=== PATIENT | female | born 1930 | race Two or more races ===

== ENCOUNTER 2019-04-01 11:47 | Emergency (ER) | payer MEDICARE, OTHER ==
[~2019-04-01] VITALS: Ht 147.3 cm; Wt 64.4 kg
[2019-04-01 12:25] LABS: BASOPHILS % (AUTO) 0.5 % (0-1); EOSINOPHILS % (AUTO) 0.7 % (0-6); HEMATOCRIT 39.1 % (35.0-45.0); HEMOGLOBIN 12.8 g/dl (12.0-16.0); LYMPHOCYTES # (AUTO) 1.7 X10'3 (1.1-4.8); LYMPHOCYTES % (AUTO) 27.9 % (21-51); MEAN CORPUSCULAR HEMOGLOBIN 29.5 PG (27.0-31.0); MEAN CORPUSCULAR HGB CONC 32.8 g/dL (33.0-36.5); MEAN CORPUSCULAR VOLUME 89.9 FL (78-98); MEAN PLATELET VOLUME 7.8 FL (7.4-10.4); MONOCYTES # (AUTO) 0.3 X10'3 (0-0.9); MONOCYTES % (AUTO) 5.6 % (2-12); NEUTROPHILS # (AUTO) 4.1 X10'3 (1.8-7.7); NEUTROPHILS % (AUTO) 65.3 % (42-75); PLATELET COUNT 214 X10'3 (140-440); RED BLOOD COUNT 4.34 X10'6 (4.20-5.60); RED CELL DISTRIBUTION WIDTH 15.8 % (11.5-14.5); WHITE BLOOD COUNT 6.2 X10'3 (4.5-11.0)
--- NOTE | 2019-04-01 12:35 | NUR ---
ASSUMED CARE OF PT FROM [facility], FIRST CONTACT WITH PT, FAMILY IS AT BEDSIDE AND SAID PT IS AT HER BASELINE, H/O DEMENTIA AND CVA, FAMILY SAID SHE HAS "GOOD DAYS AND BAD DAYS...SOMETIMES SHE KNOWS US AND SOMETIMES SHE DOESN'T", PT HAS EYES OPEN, CONFUSED, FOLLOW SIMPLE COMMANDS AT TIMES, RESP EVEN AND UNLABORED, SKIN P/W/D,
[2019-04-01 12:37] LABS: ANION GAP 12 (8-16); BILIRUBIN,TOTAL 0.6 MG/DL (0.1-1.0); BLOOD UREA NITROGEN 31 MG/DL (7-18); CALCIUM 9.2 MG/DL (8.5-10.1); CHLORIDE 110 MMOL/L (99-107); CREATININE 1.07 MG/DL (0.40-0.90); GLUCOSE 85 MG/DL (70-104); POTASSIUM 3.9 MMOL/L (3.5-5.1); SODIUM 145 MMOL/L (135-145); TOTAL PROTEIN 7.3 G/DL (6.4-8.2); eGFR 48 ML/MIN
[2019-04-01 12:38] LABS: ALANINE AMINOTRANSFERASE 19 U/L (12-78); ALBUMIN 3.5 G/DL (3.4-5.0); ALBUMIN/GLOBULIN RATIO 0.9 (1.1-1.5); ALKALINE PHOSPHATASE 77 IU/L (46-116); ASPARTATE AMINO TRANSFERASE 17 U/L (10-37)
--- NOTE | 2019-04-01 12:40 | NUR ---
IN AND OUT CATH DONE WITH STERILE TECHNIQUE, 20ML OF DARK YELLOW, CLOUDY URINE OUT, NO COMPLICATIONS, PT VENKAT WELL
[2019-04-01 12:58] LABS: CLARITY,URINE TURBID (Clear); COLOR,URINE YELLOW (Yellow); GLUCOSE, URINE NEGATIVE (Neg); KETONES,URINE 15 mg/dl (Neg); LEUKOCYTE ESTERASE ,URINE LARGE (Neg); NITRITES, URINE POSITIVE (Neg); OCCULT BLOOD,URINE TRACE-INTACT (Neg); PH,URINE 7.5 (4.8-8.0); PROTEIN,URINE 30 mg/dl (Neg); UROBILINOGEN,URINE 0.2 E.U/dL (0.2-1.0)
[2019-04-01 13:00] LABS: UA COLLECTION TYPE STRAIGHT CATH
[2019-04-01 13:04] LABS: MUCUS STRANDS NONE SEEN /LPF (Neg); SQUAMOUS EPITHELIAL CELL,UR FEW /LPF (FEW); TRANSITIONAL EPI CELLS,URINE MODERATE /HPF
[2019-04-01 13:05] LABS: BACTERIA,URINE 4+ /HPF (Neg); RBC,URINE 0-2 /HPF (0-2); WBC,URINE TNTC /HPF (0-4)
[2019-04-01] MEDS ORDERED: CefTRIAXone 2gm/D5W 50ml 50 ML IV ONE (13:30)
[2019-04-01] MEDS ORDERED: normal saline 1000ML IV soln IVB ONE (13:30)
--- NOTE | 2019-04-01 13:44 | NUR ---
FAMILY AWARE OF PLAN TO DC ASSISTED HOME VIA [facility], DX WITH UTI, RECEIVING ANTIBIOTIC AND 1 LITER NS IV BEFORE TRANSPORT, PT IS RESTING QUIETLY ON GURNEY, GCS 14 (BASELINE PER FAMILY), RESP EVEN AND UNLABORED, IV TO LEFT AC IS PATENT AND CLEAR
[2019-04-01] MEDS ORDERED: CEPH500C5 PO (13:47)
--- NOTE | 2019-04-01 13:51 | NUR ---
REPORT GIVEN TO ALMA ROSA WEISS, AT [facility], WE ARE ARRANGING FOR TRANSPORTATION BACK TO FACILITY
[2019-04-01 14:16] VITALS: BP 130/50
== END 2019-04-01 14:18 | disposition home or self-care (01) ==
LOC: ER 11:49
DX: F03.90 Unspecified dementia, unspecified severity, without behavioral disturbance, psychotic disturbance, mood disturbance, and anxiety (principal); N39.0 Urinary tract infection, site not specified; R79.1 Abnormal coagulation profile; Z88.6 Allergy status to analgesic agent
CPT/HCPCS: 36415; 80053; 81001; 85025; 85610; 87077; 87088; 87186; 93005; 96365; 99284; J0696; J7030; P9612

== ENCOUNTER 2019-05-02 12:50 | Emergency (ER) | payer MEDICARE, OTHER ==
[~2019-05-02] VITALS: Ht 152.4 cm; Wt 59.1 kg
[~2019-05-02 12:50] MED LIST: CEPH500C5 PO
[2019-05-02 12:52] VITALS: BP 98/53
== END 2019-05-02 14:47 | disposition home or self-care (01) ==
LOC: ER 12:51
DX: S00.03XA Contusion of scalp, initial encounter (principal); F03.90 Unspecified dementia, unspecified severity, without behavioral disturbance, psychotic disturbance, mood disturbance, and anxiety; R22.42 Localized swelling, mass and lump, left lower limb; M54.2 Cervicalgia; Z88.6 Allergy status to analgesic agent; Z88.5 Allergy status to narcotic agent; W18.30XA Fall on same level, unspecified, initial encounter; Y93.89 Activity, other specified; Y92.89 Other specified places as the place of occurrence of the external cause; Y99.9 Unspecified external cause status
CPT/HCPCS: 70450; 72125; 93005; 99284

== ENCOUNTER 2019-08-06 10:29 | Emergency (ER) | payer MEDICARE, OTHER ==
[~2019-08-06] VITALS: Ht 154.9 cm; Wt 54.5 kg
[2019-08-06] MEDS ORDERED: normal saline 1000ML IV soln IVB ONE (11:05)
--- NOTE | 2019-08-06 11:27 | NUR ---
Allergy info per EMS
[2019-08-06 11:28] LABS: CLARITY,URINE SLIGHTLY CLOUDY (Clear); COLOR,URINE YELLOW (Yellow); GLUCOSE, URINE NEGATIVE (Neg); KETONES,URINE NEGATIVE (Neg); LEUKOCYTE ESTERASE ,URINE SMALL (Neg); NITRITES, URINE POSITIVE (Neg); OCCULT BLOOD,URINE NEGATIVE (Neg); PH,URINE 5.5 (4.8-8.0); PROTEIN,URINE NEGATIVE (Neg); UROBILINOGEN,URINE 0.2 E.U/dL (0.2-1.0)
[2019-08-06 11:32] LABS: BASOPHILS % (AUTO) 0.4 % (0-1); EOSINOPHILS # (AUTO) 0.1 X10'3 (0-0.9); EOSINOPHILS % (AUTO) 1.2 % (0-6); HEMOGLOBIN 12.7 g/dl (12.0-16.0); LYMPHOCYTES # (AUTO) 1.2 X10'3 (1.1-4.8); LYMPHOCYTES % (AUTO) 15.1 % (21-51); MEAN CORPUSCULAR HEMOGLOBIN 31.4 PG (27.0-31.0); MEAN CORPUSCULAR HGB CONC 33.5 g/dL (33.0-36.5); MEAN CORPUSCULAR VOLUME 93.6 FL (78-98); MONOCYTES # (AUTO) 0.5 X10'3 (0-0.9); MONOCYTES % (AUTO) 5.8 % (2-12); NEUTROPHILS # (AUTO) 6.2 X10'3 (1.8-7.7); NEUTROPHILS % (AUTO) 77.5 % (42-75); PLATELET COUNT 201 X10'3 (140-440); RED BLOOD COUNT 4.06 X10'6 (4.20-5.60); RED CELL DISTRIBUTION WIDTH 14.6 % (11.5-14.5)
[2019-08-06 11:44] LABS: UA COLLECTION TYPE STRAIGHT CATH
[2019-08-06 11:50] LABS: ALANINE AMINOTRANSFERASE 20 U/L (12-78); ALBUMIN 3.3 G/DL (3.4-5.0); ALBUMIN/GLOBULIN RATIO 0.9 (1.1-1.5); ALKALINE PHOSPHATASE 78 IU/L (46-116); ANION GAP 10 (8-16); ASPARTATE AMINO TRANSFERASE 26 U/L (10-37); BILIRUBIN,TOTAL 0.5 MG/DL (0.1-1.0); BLOOD UREA NITROGEN 24 MG/DL (7-18); BUN/CREATININE RATIO 22.4 (6.6-38.0); CALCIUM 8.9 MG/DL (8.5-10.1); CHLORIDE 106 MMOL/L (99-107); CREATININE 1.07 MG/DL (0.40-0.90); GLUCOSE 123 MG/DL (70-104); POTASSIUM 4.4 MMOL/L (3.5-5.1); SODIUM 142 MMOL/L (135-145); TOTAL CARBON DIOXIDE 26.1 MMOL/L (24-32); TOTAL PROTEIN 6.9 G/DL (6.4-8.2); eGFR 48 ML/MIN
[2019-08-06 11:51] LABS: TROPONIN I < 0.04 NG/ML (0.0-0.05)
[2019-08-06 11:57] LABS: SQUAMOUS EPITHELIAL CELL,UR FEW /LPF (FEW)
[2019-08-06 11:58] LABS: HYALINE CASTS 0-3 /LPF (NEGATIVE); MUCUS STRANDS FEW /LPF (Neg)
[2019-08-06 12:00] LABS: RBC,URINE 0-2 /HPF (0-2); TRANSITIONAL EPI CELLS,URINE MODERATE /HPF
[2019-08-06] MEDS ORDERED: normal saline 1000ML IV soln IV ONE (12:00)
[2019-08-06] MEDS ORDERED: CefTRIAXone 2gm/D5W 50ml 50 ML IV ONE (12:00)
[2019-08-06 12:01] LABS: WBC CLUMPS,URINE FEW /HPF (NEGATIVE)
[2019-08-06 12:05] LABS: BACTERIA,URINE 3+ /HPF (Neg)
--- NOTE | 2019-08-06 12:38 | NUR ---
Spoke to PA regarding fluid order. Per SARITA Horan, finish the first 2L fluid order. Reassess VS before beginning 2nd order for possible change in quantity of fluid.
[2019-08-06] MEDS ORDERED: CEPH250T PO (14:16)
--- NOTE | 2019-08-06 15:00 | NUR ---
[facility] CALLED FOR TRANSPORT, [facility] AROUND [id number]. WILL CONTACT DAUGHTER PRADIP FOR PRIOR PAYMENT AUTHORIZATION. [phone].
--- NOTE | 2019-08-06 15:30 | NUR ---
[facility] CALLED BACK STATING THAT THEY HAVE NOT YET BEEN ABLE TO REACH DAUGHTER FOR TRANSPORT AUTHORIZATION.
--- NOTE | 2019-08-06 16:27 | NUR ---
[facility] IS STILL UNABLE TO BE REACH DAUGHTER. CALLED [facility] RACHEL WHO STATED THAT SHE WILL ATTEMPT TO CALL FAMILY.
[2019-08-06 17:32] VITALS: BP 151/73
== END 2019-08-06 17:35 | disposition home or self-care (01) ==
LOC: ER 10:29
DX: G93.41 Metabolic encephalopathy (principal); N39.0 Urinary tract infection, site not specified; R11.2 Nausea with vomiting, unspecified; R19.7 Diarrhea, unspecified; F03.90 Unspecified dementia, unspecified severity, without behavioral disturbance, psychotic disturbance, mood disturbance, and anxiety; Z88.6 Allergy status to analgesic agent; Z88.5 Allergy status to narcotic agent; Z79.899 Other long term (current) drug therapy
CPT/HCPCS: 36415; 71045; 74176; 80053; 81001; 83605; 84145; 84484; 85025; 87040; 87077; 87088; 87186; 93005; 96361; 96374; 99284; J0696; J7030; 96365

== ENCOUNTER 2019-08-07 09:55 | Emergency (ER) | payer MEDICARE, OTHER ==
[~2019-08-07] VITALS: Ht 157.5 cm; Wt 50.0 kg
[~2019-08-07 09:55] MED LIST changes: +CEPH250T PO
[2019-08-07 11:11] LABS: BASOPHILS # (AUTO) 0.1 X10'3 (0-0.2); BASOPHILS % (AUTO) 0.7 % (0-1); EOSINOPHILS # (AUTO) 0.1 X10'3 (0-0.9); EOSINOPHILS % (AUTO) 0.9 % (0-6); HEMATOCRIT 34.9 % (35.0-45.0); HEMOGLOBIN 11.7 g/dl (12.0-16.0); LYMPHOCYTES # (AUTO) 1.3 X10'3 (1.1-4.8); LYMPHOCYTES % (AUTO) 14.7 % (21-51); MEAN CORPUSCULAR HEMOGLOBIN 31.5 PG (27.0-31.0); MEAN CORPUSCULAR HGB CONC 33.6 g/dL (33.0-36.5); MEAN CORPUSCULAR VOLUME 93.6 FL (78-98); MEAN PLATELET VOLUME 7.7 FL (7.4-10.4); MONOCYTES # (AUTO) 0.6 X10'3 (0-0.9); NEUTROPHILS # (AUTO) 6.7 X10'3 (1.8-7.7); NEUTROPHILS % (AUTO) 76.7 % (42-75); PLATELET COUNT 192 X10'3 (140-440); RED BLOOD COUNT 3.73 X10'6 (4.20-5.60); RED CELL DISTRIBUTION WIDTH 14.5 % (11.5-14.5); WHITE BLOOD COUNT 8.8 X10'3 (4.5-11.0)
[2019-08-07 11:29] LABS: ALANINE AMINOTRANSFERASE 14 U/L (12-78); ALBUMIN/GLOBULIN RATIO 0.9 (1.1-1.5); ALKALINE PHOSPHATASE 72 IU/L (46-116); ANION GAP 7 (8-16); ASPARTATE AMINO TRANSFERASE 22 U/L (10-37); BILIRUBIN,TOTAL 0.5 MG/DL (0.1-1.0); BLOOD UREA NITROGEN 16 MG/DL (7-18); CALCIUM 8.3 MG/DL (8.5-10.1); CHLORIDE 110 MMOL/L (99-107); CREATININE 0.94 MG/DL (0.40-0.90); GLUCOSE 98 MG/DL (70-104); POTASSIUM 3.7 MMOL/L (3.5-5.1); SODIUM 142 MMOL/L (135-145); TOTAL CARBON DIOXIDE 24.6 MMOL/L (24-32); TOTAL PROTEIN 6.4 G/DL (6.4-8.2); eGFR 56 ML/MIN
[2019-08-07 12:04] VITALS: BP 176/66
--- NOTE | 2019-08-07 12:11 | NUR ---
[facility] CALLED FOR TRANSPORT, ETA 30 MINUTES.
== END 2019-08-07 12:38 | disposition home or self-care (01) ==
LOC: ER 09:56
DX: F03.90 Unspecified dementia, unspecified severity, without behavioral disturbance, psychotic disturbance, mood disturbance, and anxiety (principal); K62.5 Hemorrhage of anus and rectum; Z88.6 Allergy status to analgesic agent; Z88.5 Allergy status to narcotic agent; Z79.899 Other long term (current) drug therapy
CPT/HCPCS: 36415; 80053; 85025; 99284